=== PATIENT | male | born 1980 | race Caucasian/White ===

== ENCOUNTER 2016-11-22 15:16 | Emergency (ER) | payer OTHER ==
[2016-11-22 15:35] VITALS: BP 130/83; PULSE 76; RESP 16; TEMP 98.2
--- NOTE | 2016-11-22 15:57 | XR ---
EXAMINATION TYPE: XR wrist complete LT DATE OF EXAM: 11/22/2016 CLINICAL HISTORY: Left wrist pain for 3 weeks. TECHNIQUE: Frontal, lateral, scaphoid, and oblique images of the left wrist are obtained. COMPARISON: None FINDINGS: There is no acute fracture/dislocation evident in the left wrist. The joint spaces in the left wrist appear within normal limits. The overlying soft tissue appears unremarkable. IMPRESSION: There is no acute fracture or dislocation in the left wrist. Unremarkable study.
--- NOTE | 2016-11-22 16:12 | ED ---
Upper Extremity HPI - General Chief Complaint: Extremity Injury, Upper Stated Complaint: wrist pain Time Seen by Provider: 11/22/16 15:40 Source: patient Mode of arrival: ambulatory Limitations: no limitations - Related Data Previous Rx's Medication Instructions Recorded Acetaminophen-Codeine 300-30mg 1 tab PO Q6H PRN #15 tablet 11/22/16 [Tylenol #3] Dexamethasone 0.75 mg PO DAILY #12 tab 11/22/16 Allergies Allergy/AdvReac Type Severity Reaction Status Date / Time No Known Allergies Allergy Verified 08/26/14 12:40 Review of Systems ROS Statement: Those systems with pertinent positive or pertinent negative responses have been documented in the HPI. ROS Other: All systems not noted in ROS Statement are negative. Past Medical History Past Medical History: No Reported History History of Any Multi-Drug Resistant Organisms: None Reported Past Surgical History: No Surgical Hx Reported Past Psychological History: No Psychological Hx Reported Smoking Status: Current every day smoker Past Alcohol Use History: Occasional Past Drug Use History: Marijuana General Exam Limitations: no limitations Course Vital Signs 11/22/16 15:32 Temperature 98.2 F Pulse Rate 76 Respiratory 16 Rate Blood Pressure 130/83 O2 Sat by Pulse 100 Oximetry Disposition Clinical Impression: Carpal tunnel syndrome of left wrist Disposition: HOME SELF-CARE Condition: Good Instructions: Wrist Injury (ED), Paresthesia (ED) Additional Instructions: and advised to follow-up with orthopedic physician. Take prescriptions as directed. Patient advised to also use the wrist splint as directed. Return to the emergency department if any alarming signs or symptoms occur. Prescriptions: Acetaminophen-Codeine 300-30mg [Tylenol #3] 1 tab PO Q6H PRN #15 tablet PRN Reason: Pain Dexamethasone 0.75 mg PO DAILY #12 tab Referrals: Jeremy Escamilla MD [Primary Care Provider] - 1-2 days Leo Holder MD [STAFF PHYSICIAN] - 1-2 days Time of Disposition: 16:11
== END 2016-11-22 16:22 | disposition home or self-care (01) ==
LOC: EC 15:16
DX: G56.02 Carpal tunnel syndrome, left upper limb (principal); F17.200 Nicotine dependence, unspecified, uncomplicated
CPT/HCPCS: 99283

== ENCOUNTER → 2017-03-14 | Outpatient (CLI) | payer OTHER ==
[2017-03-14 10:33] LABS: EKG EKG PERFORMED
[2017-03-14 11:13] LABS: Basophils % (A) 0 %; CH 32.2; CHCM 34.1; Eosinophils # (A) 0.2 k/uL (0-0.7); Eosinophils % (A) 3 %; HCT 46.1 % (39.0-53.0); Luc # (Auto) 0.07; Luc % (Auto) 1; Lymphocytes # (A) 1.7 k/uL (1.0-4.8); Lymphocytes % (A) 21 %; MCH 30.8 pg (25.0-35.0); MCHC 32.5 g/dL (31.0-37.0); Mean Platelet Volume 8.1; Monocytes # (A) 0.4 k/uL (0-1.0); Monocytes % (A) 5 %; Neutrophils # (A) 5.6 k/uL (1.3-7.7); Neutrophils % (A) 70 %; RBC 4.85 m/uL (4.30-5.90); WBC (Perox) 7.66
[2017-03-14 11:25] LABS: Anion Gap 9 mmol/L; Blood Urea Nitrogen 15 mg/dL (9-20); Calcium 9.8 mg/dL (8.4-10.2); Carbon Dioxide 27 mmol/L (22-30); Chloride 108 mmol/L (98-107); Glucose 120 mg/dL (74-99); Non-African American GFR(MDRD) >60 (>60 ml/min/1.73 sqM); Potassium 4.5 mmol/L (3.5-5.1); Sodium 144 mmol/L (137-145)
== END | disposition home or self-care (01) ==
LOC: LABWHC1 10:07
PROVIDERS: ATTEND Orthopaedic Surgery
DX: Z01.810 Encounter for preprocedural cardiovascular examination (principal)
CPT/HCPCS: 36415; 80048; 85025; 93005

== ENCOUNTER 2019-08-14 10:40 | Inpatient (IN) | payer OTHER ==
[2019-08-14] MEDS ORDERED: SODIUM CHLORIDE 0.9% 1,000 ML IV STA ×2 (11:10)
--- NOTE | 2019-08-14 11:25 | ED ---
General Adult HPI - General Chief complaint: Seizure Stated complaint: seizures Time Seen by Provider: 08/14/19 11:00 Source: patient, EMS, RN notes reviewed, old records reviewed Mode of arrival: EMS Limitations: no limitations - History of Present Illness Initial comments: This Patient is a 39-year-old male with one prior seizure approximately 4-5 yea rs ago. He presents today for a seizure while he was laying in bed. This was witnessed by his girlfriend. Patient's girlfriend reports that he had a seizure in his sleep and it lasted approximately 3-4 minutes. He then woke up somewhat postictal. He rolled onto the side of the bed and had a minor head injury by hitting his head on the cabinet. His girlfriend denies any significant loss of consciousness after the head injury. Patient did not follow with a neurologist after his first seizure. He reports occasional drinker. Denies any other symptoms including fever chest or abdominal pain. - Related Data Previous Rx's Medication Instructions Recorded Acetaminophen-Codeine 300-30mg 1 tab PO Q6H PRN #15 tablet 11/22/16 [Tylenol #3] Dexamethasone 0.75 mg PO DAILY #12 tab 11/22/16 Allergies Allergy/AdvReac Type Severity Reaction Status Date / Time No Known Allergies Allergy Verified 08/26/14 12:40 Review of Systems ROS Statement: Those systems with pertinent positive or pertinent negative responses have been documented in the HPI. ROS Other: All systems not noted in ROS Statement are negative. Past Medical History Past Medical History: Seizure Disorder History of Any Multi-Drug Resistant Organisms: None Reported Past Surgical History: No Surgical Hx Reported Additional Past Surgical History / Comment(s): left thumb surgery Past Psychological History: No Psychological Hx Reported Smoking Status: Current every day smoker Past Alcohol Use History: Occasional Past Drug Use History: Marijuana General Exam Limitations: no limitations General appearance: alert, in no apparent distress Head exam: Present: atraumatic, normocephalic, normal inspection Eye exam: Present: normal appearance, PERRL, EOMI. Absent: scleral icterus, conjunctival injection, periorbital swelling ENT exam: Present: normal exam, mucous membranes moist Neck exam: Present: normal inspection. Absent: tenderness, meningismus, lymphadenopathy Respiratory exam: Present: normal lung sounds bilaterally. Absent: respiratory distress, wheezes, rales, rhonchi, stridor Cardiovascular Exam: Present: regular rate, normal rhythm, normal heart sounds. Absent: systolic murmur, diastolic murmur, rubs, gallop, clicks GI/Abdominal exam: Present: soft, normal bowel sounds. Absent: distended, tende rness, guarding, rebound, rigid Extremities exam: Present: normal inspection, full ROM, normal capillary refill. Absent: tenderness, pedal edema, joint swelling, calf tenderness Neurological exam: Present: alert, oriented X3, CN II-XII intact Expanded Patient oriented to: Present: person, place, time Speech: Present: fluid speech Cranial nerves: EOM's Intact: Normal Cerebellar function: Finger to Nose: Normal Upper motor neuron: Dale Neglect: Normal Sensory exam: Upper Extremity Light Touch: Normal, Lower Extremity Light Touch: Normal Motor strength exam: RUE: 5, LUE: 5, RLE: 5, LLE: 5 Eye Response: (4) open spontaneously Motor Response: (6) obeys commands Verbal Response: (5) oriented Katarzyna Total: 15 Psychiatric exam: Present: normal affect, normal mood Skin exam: Present: warm, dry, intact, normal color. Absent: rash Course Vital Signs 08/14/19 08/14/19 08/14/19 10:45 11:45 12:04 Temperature 97 F L Pulse Rate 56 L 66 74 Respiratory 18 24 18 Rate Blood Pressure 133/103 205/92 150/87 O2 Sat by Pulse 95 96 96 Oximetry 08/14/19 12:15 Temperature Pulse Rate 61 Respiratory 18 Rate Blood Pressure 134/87 O2 Sat by Pulse 96 Oximetry - Reevaluation(s) Reevaluation #1: 08/14/19 12:02 Patient had a seizure while in computed tomography scan. Total tonic-clonic seizure lasting approximately 2 minutes. Patient had IV ripped out at that time was given 2 mg of IM Ativan. He was post ictal somewhat combative after the seizure. Medical Decision Making - Medical Decision Making 39-year-old male presents emergency department today with onset of seizure. He had 3-4 minute tonic-clonic seizure according to girlfriend on bed. He then sat off the bed and hit his head. Patient arrived to the emergency department alert oriented and becoming more aware less postictal. Patient had no acute neurological deficits. He has had one previous seizure approximately 4-5 years ago. After Patient had some urgency department computed tomography scan is completed. Patient completed the CT of the brain he subsequently went into a 2- 3 minute tonic-clonic seizure on the CAT scan table. Patient was then given IM Ativan, and and patient was combative and post ictal. Patient started on keppra bolus. Ct brain without had some abnromal density and CT COW was completed and normal without aneurysm. PAtient reevaluated after second seizure and is resting in bed. Informed patient girlfriend that plan to admit and consul t neurology. - Lab Data Result diagrams: 08/14/19 11:23 08/14/19 11:23 Lab Results 08/14/19 08/14/19 08/14/19 Range/Units 11:23 11:23 11:23 WBC 13.2 H (3.8-10.6) k/uL RBC 5.26 (4.30-5.90) m/uL Hgb 16.5 (13.0-17.5) gm/dL Hct 47.5 (39.0-53.0) % MCV 90.3 (80.0-100.0) fL MCH 31.4 (25.0-35.0) pg MCHC 34.8 (31.0-37.0) g/dL RDW 13.0 (11.5-15.5) % Plt Count 223 (150-450) k/uL Neutrophils % 86 % Lymphocytes % 8 % Monocytes % 4 % Eosinophils % 2 % Basophils % 0 % Neutrophils # 11.3 H (1.3-7.7) k/uL Lymphocytes # 1.1 (1.0-4.8) k/uL Monocytes # 0.5 (0-1.0) k/uL Eosinophils # 0.3 (0-0.7) k/uL Basophils # 0.0 (0-0.2) k/uL Sodium 139 (137-145) mmol/L Potassium 5.0 (3.5-5.1) mmol/L Chloride 109 H (98-107) mmol/L Carbon Dioxide 18 L (22-30) mmol/L Anion Gap 12 mmol/L BUN 15 (9-20) mg/dL Creatinine 0.88 (0.66-1.25) mg/dL Est GFR (CKD-EPI)AfAm >90 (>60 ml/min/1.73 sqM) Est GFR (CKD-EPI)NonAf >90 (>60 ml/min/1.73 sqM) Glucose 112 H (74-99) mg/dL POC Glucose (mg/dL) (75-99) mg/dL POC Glu Derrick Helper ID Calcium 9.5 (8.4-10.2) mg/dL Total Bilirubin 0.3 (0.2-1.3) mg/dL AST 23 (17-59) U/L ALT 15 (4-49) U/L Alkaline Phosphatase 94 (38-126) U/L Total Protein 7.4 (6.3-8.2) g/dL Albumin 4.4 (3.5-5.0) g/dL Urine Color Light Yellow Urine Appearance Clear (Clear) Urine pH 6.0 (5.0-8.0) Ur Specific Hollis 1.014 (1.001-1.035) Urine Protein 1+ H (Negative) Urine Glucose (UA) Negative (Negative) Urine Ketones Trace H (Negative) Urine Blood Trace H (Negative) Urine Nitrite Negative (Negative) Urine Bilirubin Negative (Negative) Urine Urobilinogen <2.0 (<2.0) mg/dL Ur Leukocyte Esterase Negative (Negative) Urine RBC <1 (0-5) /hpf Urine WBC <1 (0-5) /hpf Ur Squamous Epith Cells <1 (0-4) /hpf Urine Opiates Screen Not Detected (NotDetected) Ur Oxycodone Screen Not Detected (NotDetected) Urine Methadone Screen Not Detected (NotDetected) Ur Propoxyphene Screen Not Detected (NotDetected) Ur Barbiturates Screen Not Detected (NotDetected) U Tricyclic Antidepress Not Detected (NotDetected) Ur Phencyclidine Scrn Not Detected (NotDetected) Ur Amphetamines Screen Not Detected (NotDetected) U Methamphetamines Scrn Not Detected (NotDetected) U Benzodiazepines Scrn Not Detected (NotDetected) Urine Cocaine Screen Not Detected (NotDetected) U Marijuana (THC) Screen Detected H (NotDetected) 08/14/19 Range/Units 11:47 WBC (3.8-10.6) k/uL RBC (4.30-5.90) m/uL Hgb (13.0-17.5) gm/dL Hct (39.0-53.0) % MCV (80.0-100.0) fL MCH (25.0-35.0) pg MCHC (31.0-37.0) g/dL RDW (11.5-15.5) % Plt Count (150-450) k/uL Neutrophils % % Lymphocytes % % Monocytes % % Eosinophils % % Basophils % % Neutrophils # (1.3-7.7) k/uL Lymphocytes # (1.0-4.8) k/uL Monocytes # (0-1.0) k/uL Eosinophils # (0-0.7) k/uL Basophils # (0-0.2) k/uL Sodium (137-145) mmol/L Potassium (3.5-5.1) mmol/L Chloride (98-107) mmol/L Carbon Dioxide (22-30) mmol/L Anion Gap mmol/L BUN (9-20) mg/dL Creatinine (0.66-1.25) mg/dL Est GFR (CKD-EPI)AfAm (>60 ml/min/1.73 sqM) Est GFR (CKD-EPI)NonAf (>60 ml/min/1.73 sqM) Glucose (74-99) mg/dL POC Glucose (mg/dL) 134 H (75-99) mg/dL POC Glu Derrick Helper ID Daksha Bryant Calcium (8.4-10.2) mg/dL Total Bilirubin (0.2-1.3) mg/dL AST (17-59) U/L ALT (4-49) U/L Alkaline Phosphatase (38-126) U/L Total Protein (6.3-8.2) g/dL Albumin (3.5-5.0) g/dL Urine Color Urine Appearance (Clear) Urine pH (5.0-8.0) Ur Specific Hollis (1.001-1.035) Urine Protein (Negative) Urine Glucose (UA) (Negative) Urine Ketones (Negative) Urine Blood (Negative) Urine Nitrite (Negative) Urine Bilirubin (Negative) Urine Urobilinogen (<2.0) mg/dL Ur Leukocyte Esterase (Negative) Urine RBC (0-5) /hpf Urine WBC (0-5) /hpf Ur Squamous Epith Cells (0-4) /hpf Urine Opiates Screen (NotDetected) Ur Oxycodone Screen (NotDetected) Urine Methadone Screen (NotDetected) Ur Propoxyphene Screen (NotDetected) Ur Barbiturates Screen (NotDetected) U Tricyclic Antidepress (NotDetected) Ur Phencyclidine Scrn (NotDetected) Ur Amphetamines Screen (NotDetected) U Methamphetamines Scrn (NotDetected) U Benzodiazepines Scrn (NotDetected) Urine Cocaine Screen (NotDetected) U Marijuana (THC) Screen (NotDetected) 08/14/19 12:02 EKG performed at 1122 shows sinus bradycardia with sinus arrhythmia, septal infarct age uncertain. Ventricular rate 52 bpm. AK interval is 148 ms. QS duration is 80 ms. QT QTc is 414/85 ms. - Radiology Data Radiology results: report reviewed DT of the brain shows no acute intracranial hemorrhage mass effect or midline shift is seen. However the blood vessels of the middle cerebral arteries is somewhat hyperdense. This could be technical related to dehydration. Recommended CTA [place] of [place] to exclude vascular abnormality. CT angio COW- No large vessel intercranial arterial occlusion or aneurysmal change is seen. Slightly hyperdense appearance in the middle cerebral arteries seen on CT of the same day does not correspond to any thrombosis. Disposition Clinical Impression: New onset seizure Disposition: ADMITTED IP TO THIS HOSP Condition: Stable Is patient prescribed a controlled substance at d/c from ED?: No Referrals: None,Stated [Primary Care Provider] - 1-2 days Time of Disposition: 13:28
[2019-08-14 11:45] LABS: Basophils % (A) 0 %; Eosinophils # (A) 0.3 k/uL (0-0.7); Eosinophils % (A) 2 %; HCT 47.5 % (39.0-53.0); HGB 16.5 gm/dL (13.0-17.5); Lymphocytes # (A) 1.1 k/uL (1.0-4.8); Lymphocytes % (A) 8 %; MCH 31.4 pg (25.0-35.0); MCHC 34.8 g/dL (31.0-37.0); MCV 90.3 fL (80.0-100.0); Mean Platelet Volume 8.5; Monocytes # (A) 0.5 k/uL (0-1.0); Monocytes % (A) 4 %; Neutrophils # (A) 11.3 k/uL (1.3-7.7); Neutrophils % (A) 86 %; Platelet Count 223 k/uL (150-450); RBC 5.26 m/uL (4.30-5.90); WBC 13.2 k/uL (3.8-10.6)
[2019-08-14] MEDS ORDERED: LORazepam 2 MG/ML INJ IM STA (11:45)
[2019-08-14 11:47] LABS: Appearance,Urine Clear (Clear); Bilirubin,Urine Negative (Negative); Blood,Urine Trace (Negative); Color,Urine Light Yellow; Glucose,Urine (UA) Negative (Negative); Ketones,Urine Trace (Negative); Leukocyte Esterase,Urine Negative (Negative); Nitrite,Urine Negative (Negative); Protein,Urine 1+ (Negative); RBC,Urine <1 /hpf (0-5); Specific Gravity,Urine 1.014 (1.001-1.035); Squamous Epithelial Cell,Urine <1 /hpf (0-4); Urobilinogen,Urine <2.0 mg/dL (<2.0); WBC,Urine <1 /hpf (0-5)
[2019-08-14 11:49] LABS: Glucose,Whole Blood 134 mg/dL (75-99)
[2019-08-14 11:54] LABS: ALT 15 U/L (4-49); AST 23 U/L (17-59); African American GFR (CKD) >90 (>60 ml/min/1.73 sqM); Albumin 4.4 g/dL (3.5-5.0); Alkaline Phosphatase 94 U/L (38-126); Anion Gap 12 mmol/L; Blood Urea Nitrogen 15 mg/dL (9-20); Calcium 9.5 mg/dL (8.4-10.2); Carbon Dioxide 18 mmol/L (22-30); Chloride 109 mmol/L (98-107); Glucose 112 mg/dL (74-99); Non-African American GFR(CKD) >90 (>60 ml/min/1.73 sqM); Sodium 139 mmol/L (137-145); Total Bilirubin 0.3 mg/dL (0.2-1.3); Total Protein 7.4 g/dL (6.3-8.2)
[2019-08-14 11:56] LABS: Amphetamine Screen,Urine Not Detected (NotDetected); Barbiturate Screen,Urine Not Detected (NotDetected); Benzodiazepines Screen,Urine Not Detected (NotDetected); Cocaine Screen,Urine Not Detected (NotDetected); Methadone Screen, Urine Not Detected (NotDetected); Opiate Screen,Urine Not Detected (NotDetected); Oxycodone Screen, Urine Not Detected (NotDetected); Phencyclidine Screen,Urine Not Detected (NotDetected); Tricyclic Antidepressant,Urine Not Detected (NotDetected); Urn Cannabinoid Scrn Detected (NotDetected)
[2019-08-14] MEDS ORDERED: levETIRAcetam IV 1,000 MG in SALINE 1 100ML.BAG IVPB STA (11:57)
--- NOTE | 2019-08-14 12:06 | CT ---
EXAMINATION TYPE: CT brain wo con DATE OF EXAM: 08/14/2019 COMPARISON: 08/26/2014 HISTORY: seizure today with history of prior seizures CT DLP: 1099.4 mGycm. Automated Exposure Control for Dose Reduction was Utilized. TECHNIQUE: CT scan of the head is performed without contrast. FINDINGS: There is no acute intracranial hemorrhage, mass effect, or midline shift identified. The ventricles and sulci are within normal limits in size. The globes are intact and there are changes of chronic sinusitis. Blood vessels are somewhat hyperdense. Recommend CTA [place] of [place]. Cerebell ar tonsils low-lying in position. IMPRESSION: 1. No acute intracranial hemorrhage, mass effect, or midline shift is seen. However, the blood vessel s of the middle cerebral arteries is somewhat hyperdense. This could be technical or related to dehyd ration. Recommend CTA [place] to exclude vascular abnormality.
--- NOTE | 2019-08-14 13:11 | CT ---
EXAMINATION TYPE: CT angio COW [place] DATE OF EXAM: 08/14/2019 COMPARISON: CT brain same day HISTORY: 39-year-old male seizure, abnormal ct brain TECHNIQUE: Contiguous axial scanning of the brain performed with IV Contrast, patient injected with 1 00 mL of Isovue 370. Coronal/sagittal MIP reconstructions performed. 3-D reconstructions generated on a dedicated independent workstation. CT DLP: 224 mGycm Automated exposure control for dose reduction was used. FINDINGS: The vertebral arteries are codominant. Vertebral and basilar arteries are patent. The common carotid arteries are patent. The remainder of the anterior circulation also appears No aneurysmal changes seen. IMPRESSION: NO LARGE VESSEL INTRACRANIAL ARTERIAL OCCLUSION OR ANEURYSMAL CHANGE IS SEEN. SLIGHTLY HYPERDENSE SANDRA EARANCE TO THE MIDDLE CEREBRAL ARTERIES SEEN ON CT OF THE SAME DAY DOES NOT CORRESPOND TO ANY THROMBO SIS.
[2019-08-14] MEDS ORDERED: IBUPROFEN 400 MG TAB PO PRN (13:30)
[2019-08-14] MEDS ORDERED: MORPHINE SULFATE 4 MG/ML SYRINGE IV PRN (13:30)
[2019-08-14] MEDS ORDERED: ONDANSETRON 4 MG/2 ML VIAL IVP PRN (13:30)
[2019-08-14] MEDS ORDERED: ACETAMINOPHEN TAB 325 MG TAB PO PRN (13:30)
[2019-08-14] MEDS ORDERED: KETOROLAC 30 MG/ML 1 ML VIAL IVP PRN (13:30)
[2019-08-14] MEDS ORDERED: NALOXONE 0.4 MG/ML 1 ML VIAL IV PRN (13:30)
[2019-08-14] MEDS: SODIUM CHLORIDE 0.9% 1,000 ML IV SCH (16:04)
--- NOTE | 2019-08-14 17:51 | P.CNNES ---
History of Present Illness Consult date: 08/14/19 Requesting physician: Mina Angela Reason for Consult: New onset seizure History of Present Illness: Patient is a 39-year-old male, who came to the hospital because of a seizure while he was sleeping at night. According to EMS flow sheet, patient had a seizure while he was laying in bed sleeping. When the EMS arrived, he was alert and oriented 3 with confusion to time. Patient's mentioned that he became confused and attempted to get out of bed. Patient rolled out of bed and hit his head onto the dresser, but no visible injuries to his head or neck. Patient's pupils were round and reacting. His blood pressure at the scene was 158/104, pulse rate 92, respiration 18. Patient had a seizure while in the computed tomography scan area. It was a tonic-clonic seizure lasting about 2 minutes. Patient was postictal, somewhat combative after the seizure. There was no tongue bite or loss of control of urine. Patient's CT head showed no acute intracranial hemorrhage, mass effect or midline shift. CTA of head showed no large vessel intracranial arterial occlusion or aneurysm or thrombosis. EKG shows sinus bradycardia with sinus arrhythmia. Patient's CBC with WBC 13.2 hemoglobin 16.5 and platelets 223. Chem-20 normal. Urine drug screen positive for marijuana, blood alcohol level not checked. Patient smokes marijuana every day. Does not do any other drugs or Xanax. He states he drinks a few on the weekend. He has not drank last weekend. Patient also mentions that he had a seizure 4-5 years ago when he was at work. He came to this hospital, and they ran some tests, never saw a neurologist. He was not put on any seizure medication. Review of Systems Completely unremarkable at this time. Past Medical History Past Medical History: Seizure Disorder History of Any Multi-Drug Resistant Organisms: None Reported Past Surgical History: No Surgical Hx Reported Additional Past Surgical History / Comment(s): left thumb surgery Past Psychological History: No Psychological Hx Reported Smoking Status: Current every day smoker Past Alcohol Use History: Occasional Past Drug Use History: Marijuana Medications and Allergies Home Medications Medication Instructions Recorded Confirmed Type No Known Home Medications 08/14/19 08/14/19 History Allergies Allergy/AdvReac Type Severity Reaction Status Date / Time No Known Allergies Allergy Verified 08/14/19 13:47 Physical Examination - Vital Signs Vital Signs: Vital Signs Temp Pulse Pulse Resp BP BP Pulse Ox 08/14/19 14:18 67 16 157/75 99 08/14/19 14:14 97.7 F 68 18 108/90 98 08/14/19 13:30 73 18 117/89 98 08/14/19 12:15 61 18 134/87 96 08/14/19 12:04 74 18 150/87 96 08/14/19 11:45 66 24 205/92 96 08/14/19 10:45 97 F L 56 L 18 133/103 95 Intake and Output 08/14/19 08/14/19 08/14/19 06:59 14:59 22:59 Intake Total 100 Output Total 350 Balance -250 Intake: Intake, IV Titration 100 Amount Sodium Chloride 0.9% 1, 100 000 ml @ 100 mls/hr IV . Q10H STA Rx#:[id number] Output: Urine 350 Other: Weight 83.915 kg On examination patient is a young male, in no distress. Patient is alert and awake, oriented to time place and person. Speech and language functions are normal. Attention and concentration fund of knowledge is adequate. On cranial examination pupils are round and reactive to light, visual ambrosio are full on confrontation, extraocular muscles intact with no nystagmus. Face is symmetric, tongue protrudes the midline. Palatal elevation and sensation normal. On muscle strength testing there is no pronator drift and the strength is normal in arms and legs distally and proximally. Reflexes are 1+ and plantars downgoing. Sensory touch is equal. No ataxia for [id number] testing. Tone and bulk of muscles normal. No carotid bruit or murmur, peripheral pulses present. Results - Laboratory Findings CBC and BMP: 08/14/19 11:23 08/14/19 11:23 Abnormal Lab Findings: Abnormal Labs 08/14/19 08/14/19 08/14/19 11:23 11:23 11:23 WBC 13.2 H Neutrophils # 11.3 H Chloride 109 H Carbon Dioxide 18 L Glucose 112 H POC Glucose (mg/dL) Urine Protein 1+ H Urine Ketones Trace H Urine Blood Trace H U Marijuana (THC) Screen Detected H 08/14/19 11:47 WBC Neutrophils # Chloride Carbon Dioxide Glucose POC Glucose (mg/dL) 134 H Urine Protein Urine Ketones Urine Blood U Marijuana (THC) Screen Assessment and Plan Assessment: * 39-year-old male came with grand mal seizure while sleeping at night. He had a second seizure today while having computed tomography scan done. Patient also had history of a solitary seizure 4-5 years ago. Exact cause uncertain. Patient denies any significant alcoholism or any substance abuse besides use of marijuana. Rule out seizure disorder. Plan: * We will check an EEG, and MRI of the brain. * Patient has been started on Keppra. * Patient was informed of [place] state law of no driving, unless seizure free for 6 months, operating dangerous machinery, climbing ladders or unsupervised swimming.
--- NOTE | 2019-08-14 22:44 | HP ---
HISTORY AND PHYSICAL This patient is a 39-year-old white male who came in with a seizure, sleeping at night. He was lying in bed sleeping. He apparently became attempted to get out of bed and he hit his head under a dresser. No visible injuries to his head or his neck. Apparently he was seizing in his asleep; unsure how long he has had it. He had a CT also in the CT scan area. Tonic-clonic seizure lasting 2 minutes. Postictal somewhat combative. No tongue-biting or loss of urine. CTA shows no intracranial hemorrhage, midline shift. CTA of the head showed no large vessel intracranial arterial occlusion or aneurysm or thrombosis. EKG shows sinus bradycardia. Labs essentially were normal. Positive for marijuana. He smokes marijuana every day. He does not do any other drugs. No Xanax. Some social drinking on the weekend. He works as a livestock farmers. He had a seizure 4 to 5 years ago; never saw a neurologist, was never placed on any seizure medicines. REVIEW OF SYSTEMS: Fourteen-point review of systems negative except for those mentioned in HPI. PAST MEDICAL HISTORY: Possible seizure disorder. Current everyday smoker. Occasional marijuana. No home medicines. PHYSICAL EXAMINATION: Vital signs reviewed. CARDIOVASCULAR: S1, S2. LUNGS: Transmitted upper airway sounds. HEMATOLOGY: Negative Homans. PSYCH: Fair mood and affect. NEUROLOGIC: Alert and oriented x3. OPHTHALMOLOGIC: Pupils equal, round, reactive to light and accommodation. Muscle strength is equal x4. VASCULAR: Normal dorsalis pedis, posterior tibial, radial pulse. LABS: White count 13.2, hemoglobin 16.5, hematocrit 47.5, BUN 15, creatinine 0.88. ASSESSMENT: 1. Acute seizure disorder, possibly recurrence. 2. Marijuana use. EEG, MRI of the brain. Started on Keppra. No driving for 6 months. Continue with Keppra. Possible discharge home after MRI and EEG. MMODL / IJN: [id number] /
[2019-08-15 07:20] LABS: African American GFR (CKD) >90 (>60 ml/min/1.73 sqM); Anion Gap 7 mmol/L; Blood Urea Nitrogen 11 mg/dL (9-20); Calcium 9.2 mg/dL (8.4-10.2); Carbon Dioxide 18 mmol/L (22-30); Chloride 112 mmol/L (98-107); Glucose 93 mg/dL (74-99); Non-African American GFR(CKD) >90 (>60 ml/min/1.73 sqM); Potassium 4.1 mmol/L (3.5-5.1); Sodium 137 mmol/L (137-145)
[2019-08-15 07:53] LABS: Basophils % (A) 0 %; Eosinophils # (A) 0.2 k/uL (0-0.7); Eosinophils % (A) 3 %; HCT 44.6 % (39.0-53.0); HGB 15.3 gm/dL (13.0-17.5); Lymphocytes # (A) 1.5 k/uL (1.0-4.8); Lymphocytes % (A) 17 %; MCH 31.3 pg (25.0-35.0); MCHC 34.4 g/dL (31.0-37.0); MCV 90.9 fL (80.0-100.0); Mean Platelet Volume 8.4; Monocytes # (A) 0.5 k/uL (0-1.0); Monocytes % (A) 6 %; Neutrophils # (A) 6.6 k/uL (1.3-7.7); Neutrophils % (A) 74 %; Platelet Count 222 k/uL (150-450); RBC 4.91 m/uL (4.30-5.90); RDW 13.1 % (11.5-15.5); WBC 8.8 k/uL (3.8-10.6)
[2019-08-15] MEDS: PANTOPRAZOLE 40 MG/10 ML VIAL IV SCH (08:24)
[2019-08-15 11:33] VITALS: RESP 18
--- NOTE | 2019-08-15 12:44 | P.CRDCN ---
History of Present Illness Consult date: 08/15/19 Reason for Consult (text): pauses Chief complaint: Seizure activity History of present illness: This is a 39-year-old gentleman who works in the [employer] business, [employer]. He has a past medical history significant for seizures a few years ago, one episode, was never initiated on medication and never followed up with a neurologist. He denies any history of hypertension, no diabetes, no hyperlipidemia, although he does not follow with a primary care doctor. He does smoke up to a pack of cigarettes per day, he does also state that he drinks alcohol every weekend but does not drink through the week at all. He uses marijuana on a daily basis. The patient was brought to the hospital after experiencing what was felt to be a seizure. Apparently the girlfriend stated that it looked like he was having a seizure while laying in bed sleeping, he apparently tried to get up and fell onto the ground hitting his head on the dresser. When I asked the patient about this episode he does not recall any of these symptoms or events. He does state that he's had a seizure in the past but never followed up. Laboratory data on arrival here, white blood cell count 13.2, hemoglobin 16.5, platelet count 223, sodium 139, potassium 5.0, BUN 15, creatinine 0.8 and was negative. Drug screen showed evidence of marijuana. Blood pressure 130/70 with a heart rate in the 70s, patient was having high blood pressures on admission here, but he states he was a quite anxious during those times as well. EKG on presentation here showed a sinus bradycardia. Cardiology consultation was requested because the patient was noted on the monitor on 2 separate occasions to have pauses. Both of these were documented while the patient was sleeping. First positive was approximately 3-1/2 seconds, second pause 2-1/2 seconds. I did ask the patient if he snores a lot or is ever been told to have sleep apnea in the past, he denied this. CAT scan of the brain was performed which did not reveal any evidence of acute intracranial hemorrhage, mass effect, or midline shift. However the blood vessels of the middle cerebral arteries were somewhat hypodense. A CT angiogram of the [place] was performed which did not reveal any large vessel intracranial arterial occlusion or aneurysmal change. At the time of my examination, patient is a lying down in bed, he is quite sleepy and tired. He denies any symptoms at present. He denies any syncopal episodes in the past, no dizziness or lightheadedness. Other than his 1 episode of seizure a few years ago patient states he has no medical history of any significance. Past Medical History Past Medical History: Seizure Disorder History of Any Multi-Drug Resistant Organisms: None Reported Past Surgical History: No Surgical Hx Reported Additional Past Surgical History / Comment(s): left thumb surgery Past Psychological History: No Psychological Hx Reported Smoking Status: Current every day smoker Past Alcohol Use History: Occasional Past Drug Use History: Marijuana Medications and Allergies Home Medications Medication Instructions Recorded Confirmed Type No Known Home Medications 08/14/19 08/14/19 History Allergies Allergy/AdvReac Type Severity Reaction Status Date / Time No Known Allergies Allergy Verified 08/14/19 13:47 Physical Exam Vitals: Vital Signs Temp Pulse Pulse Resp BP BP Pulse Ox 08/15/19 08:15 98.7 F 70 18 130/71 98 08/15/19 04:00 99.2 F 69 14 121/66 97 08/15/19 00:00 99.2 F 76 12 108/85 95 08/14/19 20:00 61 14 118/55 98 08/14/19 16:00 50 L 16 113/89 08/14/19 14:18 67 16 157/75 99 08/14/19 14:14 97.7 F 68 18 108/90 98 08/14/19 13:30 73 18 117/89 98 Intake and Output 08/14/19 08/15/19 08/15/19 22:59 06:59 14:59 Output Total 1 Balance -1 Output: Urine 1 Other: # Voids 1 1 Weight 80.4 kg PHYSICAL EXAMINATION: GENERAL: 39-year-old gentleman in no acute distress at the time of my examination HEENT: Head is atraumatic, normocephalic. Pupils equal, round. Sclera anicteric. Conjunctiva are clear. Mucous membranes of the mouth are moist. Neck is supple. There is no elevated jugular venous pressure. No carotid bruit is heard. HEART EXAMINATION: Heart S1, S2 normal. No murmur or gallop heard. CHEST EXAMINATION: Lungs are clear to auscultation and precussion. No chest wall tenderness is noted on palpation or with deep breathing. ABDOMEN: Soft, nontender. Bowel sounds are heard. No organomegaly noted. EXTREMITIES: 2+ peripheral pulses with no evidence of peripheral edema and no calf tenderness noted. NEUROLOGIC patient is awake, alert and oriented 3. . Results 08/15/19 06:33 08/15/19 06:33 CBC 08/15/19 Range/Units 06:33 WBC 8.8 (3.8-10.6) k/uL RBC 4.91 (4.30-5.90) m/uL Hgb 15.3 (13.0-17.5) gm/dL Hct 44.6 (39.0-53.0) % Plt Count 222 (150-450) k/uL Comprehensive Metabolic Panel 08/15/19 Range/Units 06:33 Sodium 137 (137-145) mmol/L Potassium 4.1 (3.5-5.1) mmol/L Chloride 112 H (98-107) mmol/L Carbon Dioxide 18 L (22-30) mmol/L BUN 11 (9-20) mg/dL Creatinine 0.91 (0.66-1.25) mg/dL Glucose 93 (74-99) mg/dL Calcium 9.2 (8.4-10.2) mg/dL Current Medications Generic Name Dose Route Start Last Admin Trade Name Freq PRN Reason Stop Dose Admin Acetaminophen 650 mg 08/14/19 13:30 Tylenol Tab PO Q6HR PRN Mild Pain or Fever > 100.5 Sodium Chloride 1,000 mls @ 20 mls/hr 08/14/19 13:30 08/14/19 16:04 Saline 0.9% IV 20 mls/hr .Q24H ELMER Administration Ibuprofen 400 mg 08/14/19 13:30 Motrin PO Q6HR PRN Mild Pain or Fever > 100.5 Ketorolac Tromethamine 30 mg 08/14/19 13:30 Toradol IVP 08/19/19 13:31 Q6HR PRN Moderate Pain Morphine Sulfate 4 mg 08/14/19 13:30 Morphine Sulfate (Inj) IV Q4HR PRN Severe Pain Naloxone HCl 0.2 mg 08/14/19 13:30 Narcan IV Q2M PRN Opioid Reversal Ondansetron HCl 4 mg 08/14/19 13:30 Zofran IVP Q8HR PRN Nausea And Vomiting Pantoprazole Sodium 40 mg 08/15/19 09:00 08/15/19 08:24 Protonix IV 40 mg DAILY ELMER Administration Intake and Output 08/14/19 08/15/19 08/15/19 22:59 06:59 14:59 Output Total 1 Balance -1 Output: Urine 1 Other: # Voids 1 1 Weight 80.4 kg 08/15/19 06:33 08/15/19 06:33 EKG Interpretations (text) EKG shows a sinus bradycardia with no significant changes. Assessment and Plan Plan: Assessment and plan #1 questionable seizures #2 episodes of pauses, could be secondary to sleep apnea #3 nicotine dependence #4 weekend alcohol use #5 marijuana use daily Plan We will obtain an echocardiogram with Doppler study, continue to monitor the patient for any significant bradycardia arrhythmias. Check a TSH level. We also recommend that the patient had an event monitor on discharge. DNP note has been reviewed, I agree with a documented findings and plan of care. Patient was seen and examined.
--- NOTE | 2019-08-15 13:32 | EEG ---
ELECTROENCEPHALOGRAM REPORT DATE OF SERVICE: 08/15/2019 PREAMBLE: A 39-year-old male presenting with seizures. EEG FINDINGS: A routine 21 channel EEG was performed utilizing 10/20 international system review with bipolar and referential montages. The background consists of well developed, well regulated, moderate voltage activity in 8 to 9 Hz alpha. Background is posterior dominant and reactive to eye opening and closing. Photic driving response was seen at some flash frequencies. Hyperventilation did not reveal any obvious abnormalities. There is intermittent left temporal focal theta seen, and occasionally was sharply controlled. The EEG also revealed some sharp appearing waves over the right hemispheric region, which at times appears more artifactual. Mild drowsiness was seen but deeper stages of sleep were not seen. EKG rhythm lead revealed some arrhythmia. IMPRESSION: This is an abnormal EEG due to intermittent left temporal theta with occasional sharply contoured waves. This is suggestive of focal cortical neuronal dysfunction, which may have some features of cortical irritability and tendency for seizures. However, I would recommend prolonged, sleep-deprived EEG for better evaluation of underlying electrographic abnormalities, as this was somewhat technically limited study. MMODL / IJN: [id number] / GARCÍA
--- NOTE | 2019-08-15 15:40 | MR ---
EXAMINATION TYPE: MR brain wo con DATE OF EXAM: 08/15/2019 3:14 PM COMPARISON: NONE HISTORY: Patient had a seizure while sleeping. Hit his head on a dresser. Unsure of length of time se izure lasted. Multiplanar and multispin-echo imaging of the brain was performed . The ventricles, basal cisterns and sulci overlying the cerebral convexities are within normal limits. There is no evidence for midline shift or mass effect. Acute intracranial hemorrhage or extra-axial collection is not evident. There is focal increased signal noted to involve the left cerebellum posteriorly measuring 1 cm. Whil e this could reflect an area of demyelination cannot exclude an underlying lesion. Contrast-enhanced MRI is advised for further evaluation. Additional smaller foci of increased signal within the bilater al cerebral hemispheres totaling approximately 5-6 on the right and approximately 3-4 on the left [place] up to 4 mm. No acute edema is identified. Chronic paranasal sinusitis noted. IMPRESSION: 1.There is focal increased signal noted to involve the left cerebellum posteriorly measuring 1 cm. Wh ile this could reflect an area of demyelination cannot exclude an underlying lesion. Contrast-enhance d MRI is advised for further evaluation. 2. No acute edema is identified.
--- NOTE | 2019-08-15 15:59 | P.PN ---
Subjective Progress Note Date: 08/15/19 Patient feels fine. No further seizures. Objective - Vital Signs Vital signs: Vital Signs Temp 98.8 F 08/15/19 11:15 Pulse 77 08/15/19 11:15 Resp 18 08/15/19 11:15 BP 134/62 08/15/19 11:15 Pulse Ox 99 08/15/19 11:15 Intake & Output 08/14/19 08/15/19 08/15/19 18:59 06:59 18:59 Intake Total 100 Output Total 350 1 Balance -250 -1 Weight 83.915 kg 80.4 kg Intake: Intake, IV Titration 100 Amount Sodium Chloride 0.9% 1, 100 000 ml @ 100 mls/hr IV . Q10H STA Rx#:[id number] Output: Urine 350 1 Other: # Voids 1 - Exam Nonfocal - Labs CBC & Chem 7: 08/15/19 06:33 08/15/19 06:33 Labs: Abnormal Lab Results - Last 24 Hours (Table) 08/15/19 Range/Units 06:33 Chloride 112 H (98-107) mmol/L Carbon Dioxide 18 L (22-30) mmol/L Assessment and Plan Assessment: * 39-year-old male presented to the ER with grand mal seizure while sleeping at night. He had a second seizure today while having computed tomography scan done. Patient also had history of a solitary seizure 4-5 years ago. Exact cause uncertain. Patient denies any significant alcoholism or any substance abuse besides use of marijuana. Rule out seizure disorder. Plan: * EEG was performed today, which was abnormal due to intermittent left temporal theta with occasional sharply contoured waves, may suggest focal cortical neuronal dysfunction with some cortical irritability. Suggest prolonged, sleep deprived EEG for better evaluation of underlying electrographic abnormalities, if any. * MRI of the brain revealed focal increased signal noted to involve the left cerebellum posteriorly measuring 1 cm. While this could reflect an area of demyelination, cannot exclude an underlying lesion. Contrast enhanced MRI is advised for further evaluation. We will check contrast enhanced MRI of the brain. * Continue Keppra 500 mg twice a day. * Patient was informed of [place] state law of no driving, unless seizure free for 6 months, operating dangerous machinery, climbing ladders or unsupervised swimming. Addendum: MRI of the brain with contrast revealed a 1 cm round isointense and nonenhancing lesion of the posterior inferior left cerebellum, corresponding to the T2 hyperintense lesion on the noncontrast study performed earlier today. Some differential considerations include demyelinating disorder, intermediate grade glioma, a small dysplastic gangliocytoma, and cerebellar cortical dysphasia/heterotropia. Patient probably will need a repeat MRI of the brain with and without contrast in 6-12 months for a follow-up. Suggest patient to follow up with a neurologist as an outpatient. Neurologically clear for discharge on Keppra 500 mg twice a day.
--- NOTE | 2019-08-15 16:15 | ECHOF ---
Referral Reason:bradycardia MEASUREMENTS -------- HEIGHT: 165.1 cm WEIGHT: 80.3 kg BP: 130/71 RVIDd: 3.2 cm (< 3.3) IVSd: 1.2 cm (0.6 - 1.1) LVIDd: 4.1 cm (3.9 - 5.3) LVPWd: 1.1 cm (0.6 - 1.1) IVSs: 1.6 cm LVIDs: 2.7 cm LVPWs: 1.7 cm LA Diam: 3.2 cm (2.7 - 3.8) LAESV Index (A-L): 24.43 ml/m Ao Diam: 3.0 cm (2.0 - 3.7) AV Cusp: 2.4 cm (1.5 - 2.6) MV EXCURSION: 17.614 mm (> 18.000) MV EF SLOPE: 124 mm/s (70 - 150) MV E Jason: 0.75 m/s MV DecT: 323 ms MV A Jason: 0.60 m/s MV E/A Ratio: 1.24 FINDINGS -------- Sinus rhythm. This was a technically good study. The left ventricular size is normal. There is borderline concentric left ventricular hypertrophy. Overall left ventricular systolic function is normal with, an EF between 55 - 60 %. The right ventricle is normal in size. Normal LA size by volume 22+/-6 ml/m2. The right atrial size is normal. Interatrial and interventricular septum intact. The aortic valve is trileaflet, and appears structurally normal. No aortic stenosis or regurgitation. The mitral valve is normal. There is trace to mild mitral regurgitation. The tricuspid valve appears structurally normal. Trace tricuspid regurgitation present. Trace/mild (physiologic) pulmonic regurgitation. The aortic root size is normal. Normal inferior vena cava with normal inspiratory collapse consistent with estimated right atrial pre ssure of 5 mmHg. There is no pericardial effusion. CONCLUSIONS -------- 1. There is borderline concentric left ventricular hypertrophy. 2. Overall left ventricular systolic function is normal with, an EF between 55 - 60 %. 3. Normal LA size by volume 22+/-6 ml/m2. 4. The aortic valve is trileaflet, and appears structurally normal. No aortic stenosis or regurgitati on. 5. There is trace to mild mitral regurgitation. 6. Trace tricuspid regurgitation present. 7. Trace/mild (physiologic) pulmonic regurgitation. SEATING CAPTAIN: Kaycee Loo RDCS
--- NOTE | 2019-08-15 16:47 | P.PN ---
Subjective Progress Note Date: 08/15/19 This is a 39-year-old gentleman admitted with possibly acute recurrent seizure disorder, marijuana use and multiple other medical issues. Earlier this morning telemetry reported patient having pauses2 separate occasions, asymptomatic sleeping, of 3.6 seconds and 2.9 seconds. Seizure precautions, Keppra maintained with no further seizures reported. Evaluated by neurology with recommendations noted and appreciated. Cardiology consulted. Echo reported normal LV function, EF between 55 and 60%. Brain MRI reported focal increased signal noted to involve the left cerebellum posteriorly measuring 1 cm. While this could reflect an area of demyelination, cannot exclude an underlying lesion. Contrast enhanced MRI is advised for further evaluation. EEG reported abnormal due to intermittent left temporal theta with occasional sharply contoured waves,possible focal cortical neuronal dysfunction with some cortical irritability. Objective - Vital Signs Vital signs: Vital Signs Temp 98.8 F 08/15/19 11:15 Pulse 77 08/15/19 11:15 Resp 18 08/15/19 11:15 BP 134/62 08/15/19 11:15 Pulse Ox 99 08/15/19 11:15 Intake & Output 08/14/19 08/15/19 08/15/19 18:59 06:59 18:59 Intake Total 100 Output Total 350 1 Balance -250 -1 Weight 83.915 kg 80.4 kg Intake: Intake, IV Titration 100 Amount Sodium Chloride 0.9% 1, 100 000 ml @ 100 mls/hr IV . Q10H STA Rx#:[id number] Output: Urine 350 1 Other: # Voids 1 - Exam PHYSICAL EXAM: VITAL SIGNS: As above GENERAL: Sitting up in bed, no acute distress HEENT: Conjunctivae normal. eyes normal. Oral mucosa moist NECK: No JVD. No thyroid enlargement. No LNs CARDIOVASCULAR: S1, S2 regular. No murmur RESPIRATION: Breath sounds diminished in the bases. No rhonchi or crackles. No wheezing ABDOMEN: Soft, nontender . No guarding. no masses palpable. No ascites, No hepatosplenomegaly.Bowel sounds heard. LEGS: No edema. no swelling PSYCHIATRY: Alert and oriented X3, mood and affect normal. NERVOUS SYSTEM: Cranial N 2-12 grossly normal. Moves all 4 limbs. No focal deficits. Strength and sensation grossly intact.. Skin: no rash - Labs CBC & Chem 7: 08/15/19 06:33 08/15/19 06:33 Labs: Abnormal Lab Results - Last 24 Hours (Table) 08/15/19 Range/Units 06:33 Chloride 112 H (98-107) mmol/L Carbon Dioxide 18 L (22-30) mmol/L Assessment and Plan Assessment: Possible acute recurrent seizures Pauses, etiology unclear Daily marijuana use Nicotine dependence Social alcohol use Plan: Continue on current medication regime ,monitoring and symptomatic treatment. Close monitoring for further arrhythmias, pauses. Contrast enhanced MRI ordered.Neurology also recommending prolonged, sleep deprived EEG for better evaluation. Patient reinforced on [facility] on no driving 6 months, no operating dangerous machinery, no unsupervised swimming. Discharge planning in progress pending MRI, neurology and cardiology final DC recommendations and clearance. The impression and plan of care has been dictated as directed. : I performed a history and examination of this patient, discussed the same with the dictator. I agree with the dictator's note ,documented as a scribe. Any additional findings or plans will be noted.
--- NOTE | 2019-08-15 17:12 | MR ---
EXAMINATION TYPE: MR brain w con DATE OF EXAM: 08/15/2019 COMPARISON: Noncontrast MRI performed earlier today HISTORY: 39-year-old male follow-up left cerebellar lesion, Patient had a seizure while sleeping. Hit his head on a dresser. Unsure of length of time that the seizure lasted. Technique: Multiplanar, multisequence images of the brain and brainstem were obtained after administr ation of 15 mL intravenous Gadavist gadolinium contrast. FINDINGS: Round isointense, nonenhancing lesion posteromedial, inferior left cerebellum corresponding to the ar ea of increased T2 signal on the noncontrast images. No mass effect or midline shift. This area measu res 1.0 cm wide and 0.9 cm cranial caudal. Prominent perivascular spaces right greater than left basal ganglia. Dural venous sinuses are patent. No enhancing intracranial lesions are identified. IMPRESSION: A 1 cm round isointense and nonenhancing lesion of the posterior inferior left cerebellum correspondi ng to the T2 hyperintense lesion on the noncontrast study performed earlier today. Some differential considerations include demyelinating disorder, intermediate grade glioma, a small dysplastic ganglioc ytoma, and cerebellar cortical dysplasia/heterotopia.
[2019-08-15] MEDS: levETIRAcetam 500 MG TAB PO SCH ×2 (18:06→19:46)
[2019-08-15] MEDS: SODIUM CHLORIDE 0.9% 1,000 ML IV SCH (18:08)
[2019-08-16] MEDS: levETIRAcetam 500 MG TAB PO SCH (08:40)
[2019-08-16] MEDS: PANTOPRAZOLE 40 MG/10 ML VIAL IV SCH (08:41)
--- NOTE | 2019-08-16 10:54 | P.PN ---
Subjective Progress Note Date: 08/16/19 This is a 39-year-old gentleman who works in the [employer] business, [employer]. He has a past medical history significant for seizures a few years ago, one episode, was never initiated on medication and never followed up with a neurologist. He denies any history of hypertension, no diabetes, no hyperlipidemia, although he does not follow with a primary care doctor. He does smoke up to a pack of cigarettes per day, he does also state that he drinks alcohol every weekend but does not drink through the week at all. He uses marijuana on a daily basis. The patient was brought to the hospital after experiencing what was felt to be a seizure. Apparently the girlfriend stated that it looked like he was having a seizure while laying in bed sleeping, he apparently tried to get up and fell onto the ground hitting his head on the dresser. When I asked the patient about this episode he does not recall any of these symptoms or events. He does state that he's had a seizure in the past but never followed up. Laboratory data on arrival here, white blood cell count 13.2, hemoglobin 16.5, platelet count 223, sodium 139, potassium 5.0, BUN 15, creatinine 0.8 and was negative. Drug screen showed evidence of marijuana. Blood pressure 130/70 with a heart rate in the 70s, patient was having high blood pressures on admission here, but he states he was a quite anxious during those times as well. EKG on presentation here showed a sinus bradycardia. Cardiology consultation was requested because the patient was noted on the monitor on 2 separate occasions to have pauses. Both of these were documented while the patient was sleeping. First positive was approximately 3-1/2 seconds, second pause 2-1/2 seconds. I did ask the patient if he snores a lot or is ever been told to have sleep apnea in the past, he denied this. CAT scan of the brain was performed which did not reveal any evidence of acute intracranial hemorrhage, mass effect, or midline shift. However the blood vessels of the middle cerebral arteries were somewhat hypodense. A CT angiogram of the [place] was performed which did not reveal any large vessel intracranial arterial occlusion or aneurysmal change. At the time of my examination, patient is a lying down in bed, he is quite sleepy and tired. He denies any symptoms at present. He denies any syncopal episodes in the past, no dizziness or li ghtheadedness. Other than his 1 episode of seizure a few years ago patient states he has no medical history of any significance. 08/16/2019 Patient seen and examined this morning, he feels well, denies any further symptoms. He has had no further pauses noted on the monitor. Echocardiogram with Doppler study revealed a normal left ventricular systolic function. Blood pressure 126/80 with a heart rate in the 70s to 80s. MRI of the brain shows a 1 cm round high so intense and nonenhancing lesion of the posterior inferior left cerebellum corresponding to the T2 hyperintense lesion on the noncontrast study performed earlier. Some differential considerations include demyelinating disorder, intermediate grade glioma, a small dysplastic gangliocytoma, and cerebella cortical dysplasia. Neurology is following. Objective - Vital Signs Vital signs: Vital Signs Temp 98.3 F 08/16/19 08:25 Pulse 82 08/16/19 08:25 Resp 18 08/16/19 08:25 BP 126/89 08/16/19 08:25 Pulse Ox 98 08/16/19 08:25 Intake & Output 08/15/19 08/16/19 08/16/19 18:59 06:59 18:59 Intake Total 180 Balance 180 Weight 78.6 kg Intake: Oral 180 Other: # Voids 3 2 - Exam PHYSICAL EXAMINATION: GENERAL: 39-year-old gentleman in no acute distress at the time of my examination HEENT: Head is atraumatic, normocephalic. Pupils equal, round. Sclera anicteric. Conjunctiva are clear. Mucous membranes of the mouth are moist. Neck is supple. There is no elevated jugular venous pressure. No carotid bruit is heard. HEART EXAMINATION: Heart S1, S2 normal. No murmur or gallop heard. CHEST EXAMINATION: Lungs are clear to auscultation and precussion. No chest wall tenderness is noted on palpation or with deep breathing. ABDOMEN: Soft, nontender. Bowel sounds are heard. No organomegaly noted. EXTREMITIES: 2+ peripheral pulses with no evidence of peripheral edema and no calf tenderness noted. NEUROLOGIC patient is awake, alert and oriented 3 . - Labs CBC & Chem 7: 08/15/19 06:33 08/15/19 06:33 Assessment and Plan Plan: Assessment and plan #1 questionable seizures #2 episodes of pauses, could be secondary to sleep apnea #3 nicotine dependence #4 weekend alcohol use #5 marijuana use daily Plan Echocardiogram with Doppler study revealed a normal left ventricular systolic function and patient has had no further episodes of pauses noted. It would be recommended that the patient undergo a sleep study, he may have possible sleep apnea which may be the cause of his pauses. We will follow this patient along with you now on an as-needed basis only, please don't hesitate to call if you have any questions. DNP note has been reviewed, I agree with a documented findings and plan of care. Patient was seen and examined.
[2019-08-16 12:07] VITALS: BP 122/76; PULSE 78; TEMP 98.2
--- NOTE | 2019-08-16 14:40 | P.PN ---
Subjective Progress Note Date: 08/16/19 Patient feels fine. No further seizures. Objective - Vital Signs Vital signs: Vital Signs Temp 98.2 F 08/16/19 11:10 Pulse 78 08/16/19 11:10 Resp 18 08/16/19 11:10 BP 122/76 08/16/19 11:10 Pulse Ox 97 08/16/19 11:10 Intake & Output 08/15/19 08/16/19 08/16/19 18:59 06:59 18:59 Intake Total 180 444 Balance 180 444 Weight 78.6 kg Intake: Oral 180 444 Other: # Voids 3 2 - Exam Nonfocal - Labs CBC & Chem 7: 08/15/19 06:33 08/15/19 06:33 Assessment and Plan Assessment: * 39-year-old male presented to the ER with grand mal seizure while sleeping at night. He had a second seizure in the ER while having computed tomography scan done. Patient also had history of a solitary seizure 4-5 years ago. Exact cause uncertain. Patient has mildly abnormal EEG. Possible seizure disorder. * Abnormal brain MRI. Plan: * EEG was abnormal due to intermittent left temporal theta with occasional sharply contoured waves, may suggest focal cortical neuronal dysfunction with some cortical irritability. Suggest prolonged, sleep deprived EEG for better evaluation of underlying electrographic abnormalities, if any. * MRI of the brain revealed focal increased signal noted to involve the left cerebellum posteriorly measuring 1 cm. While this could reflect an area of demyelination, cannot exclude an underlying lesion. Contrast enhanced MRI is advised for further evaluation. We will check contrast enhanced MRI of the brain. MRI of the brain with contrast revealed 1 cm round isointense and nonenhancing lesion of the posterior inferior left cerebellum, corresponding to the T2 hyperintense lesion on the noncontrast study performed earlier. Some differential considerations include demyelinating disorder, intermediate grade glioma, a small dysplastic gangliocytoma, and cerebellar cortical dysplasia/heterotropia. * Patient recommended to have a follow-up brain MRI with and without contrast in 6-12 months for a follow-up. Suggested patient to follow-up with a neurologist locally as outpatient. * Continue Keppra 500 mg twice a day. * Patient was again informed of [place] state law of no driving, unless seizure free for 6 months, operating dangerous machinery, climbing ladders or unsupervised swimming. * Neurologically clear for discharge on Keppra 500 mg twice a day. * Appreciate cardiology input for arrhythmia.
--- NOTE | 2019-08-16 14:46 | P.DS ---
Providers Date of admission: 08/14/19 13:15 Expected date of discharge: 08/16/19 Attending physician: Brayden Charles Consults: 08/14/19 13:15 Consult Physician Urgent Consulting Provider: Beka Mari Consult Reason/Comments: new onset seizure Do you want consulting provider notified?: Yes 08/15/19 10:53 Consult Physician Routine Consulting Provider: Pebbles Tay Consult Reason/Comments: Pauses Do you want consulting provider notified?: Yes Primary care physician: Stated None Hospital Course: Final Diagnoses: Possible acute recurrent seizures. Abnormal contrast enhanced MRI. Follow-up MRI outpatient in 6 months as recommended per neurology. Pauses, etiology unclear, even monitor outpatient at [facility] Daily marijuana use Nicotine dependence Social alcohol use Hospital course:This is a 39-year-old gentleman admitted with possibly acute recurrent seizure disorder, marijuana use and multiple other medical issues. Earlier this morning telemetry reported patient having pauses2 separate occasions, asymptomatic sleeping, of 3.6 seconds and 2.9 seconds. Seizure precautions, Keppra maintained with no further seizures reported. Evaluated by neurology with recommendations noted and appreciated. Cardiology consulted. Echo reported normal LV function, EF between 55 and 60%. Brain MRI reported focal increased signal noted to involve the left cerebellum posteriorly measuring 1 cm. While this could reflect an area of demyelination, cannot exclude an underlying lesion. Contrast enhanced MRI is advised for further evaluation. EEG reported abnormal due to intermittent left temporal theta with occasional sharply contoured waves,possible focal cortical neuronal dysfunction with some cortical irritability. Maintained on Keppra with no further seizure activity, nor pauses reported. Contrast enhanced MRI reporting 1 cm round isointense, nonenhancing lesion of the posterior inferior left cerebellum corresponding to the T2 hyperintense lesion on the prior noncontrast study. Some differential considerations include demyelinating disorder, intermediate grade glioma, small dysplastic gangliocytoma and cerebellar cortical dysplasia/heterotopia. Possible scar tissue with follow-up MRI in 6 months as recommended per neurology. Neurology also recommending prolonged, sleep deprived EEG for better evaluation. Cleared by Cardiology for discharge, recommending an event monitor at [facility] and possible sleep study-to be arranged by PCP.Patient reinforced on [facility] on no driving 6 months, no operating dangerous machinery, no unsupervised swimming. Patient will be discharged home today in stable condition with guarded prognosis pending final [facility] recommendations and clearance from neurology. The impression and plan of care has been dictated as directed. : I performed a history and examination of this patient, discussed the same with the dictator. I agree with the dictator's note ,documented as a scribe. Any additional findings or plans will be noted. Patient Condition at Discharge: Stable Plan - Discharge Summary Discharge Rx Participant: Yes New Discharge Prescriptions: New levETIRAcetam [Keppra] 500 mg PO Q12HR #60 tab Pantoprazole Sodium [Protonix] 40 mg PO DAILY #30 tablet. Discharge Medication List Pantoprazole Sodium [Protonix] 40 mg PO DAILY #30 tablet. 08/16/19 [Rx] levETIRAcetam [Keppra] 500 mg PO Q12HR #60 tab 08/16/19 [Rx] Follow up Appointment(s)/Referral(s): Yeimy Rosenberg MD [STAFF PHYSICIAN] - 2 Weeks Brayden Charles MD [STAFF PHYSICIAN] - 3 Days [facility] [[facility] - As Needed Patient Instructions/Handouts: How to Stop Smoking (DC) Activity/Diet/Wound Care/Special Instructions: Event monitor at discharge. Follow-up BRain MRI in 6mths. Sleep study to be arranged by PCP.
== END 2019-08-16 15:40 | disposition home or self-care (01) | DRG 101 ==
LOC: EC 10:40 → 3SCARD 13:15
PROVIDERS: ADMIT Family Medicine; ATTEND Family Medicine
DX: G40.909 Epilepsy, unspecified, not intractable, without status epilepticus (principal); F17.210 Nicotine dependence, cigarettes, uncomplicated; R00.1 Bradycardia, unspecified; G47.30 Sleep apnea, unspecified; R94.01 Abnormal electroencephalogram [EEG]; R94.02 Abnormal brain scan; W06.XXXA Fall from bed, initial encounter
CPT/HCPCS: 36415; 70450; 70496; 70551; 70552; 80048; 80053; 80306; 81001; 84443; 85025; 93005; 93306; 95819; 96360; 96361; 96372; 96374; 99285

== ENCOUNTER → 2020-03-17 | Outpatient (CLI) | payer OTHER | END | disposition home or self-care (01) | LOC: LABWHC1 09:26 | PROVIDERS: ATTEND Psychiatry & Neurology Neurology | DX: G40.309 Generalized idiopathic epilepsy and epileptic syndromes, not intractable, without status epilepticus (principal) | CPT/HCPCS: 36415; 80177 ==

== ENCOUNTER 2020-05-29 14:30 | Emergency (ER) | payer OTHER ==
[2020-05-29 14:40] VITALS: BP 130/81; PULSE 108; RESP 18; TEMP 98.5
[2020-05-29] MEDS ORDERED: predniSONE 50 MG TAB PO STA (14:55)
[2020-05-29] MEDS ORDERED: KETOROLAC 15 MG/ML 1 ML VIAL IM STA (14:55)
--- NOTE | 2020-05-29 15:17 | ED ---
General Adult HPI - General Chief complaint: Back Pain/Injury Stated complaint: Back Pain Time Seen by Provider: 05/29/20 14:42 Source: patient Mode of arrival: ambulatory Limitations: no limitations - History of Present Illness Initial comments: 40-year-old male with a past medical history of seizure disorder presents to the emergency room for a chief complaint of back pain. Patient states he has had chronic back pain since an accident over 10 years ago. Patient called his doctor today about his back pain and he was recommended he come to the emergency room. Patient states this is the same as his normal back pain. States it does radiate down the back of his right leg a bit. Denies any weakness of the legs. Denies any bladder or bowel changes. Denies any symptoms of saddle anesthesia. No fevers. Patient states his doctor told him to get x-rays that he does not want them as he knows it will not show anything.Patient has no other complaints at this time including shortness of breath, chest pain, abdominal pain, nausea or vomiting, headache, or visual changes. - Related Data Previous Rx's Medication Instructions Recorded Pantoprazole Sodium [Protonix] 40 mg PO DAILY #30 tablet. 08/16/19 levETIRAcetam [Keppra] 500 mg PO Q12HR #60 tab 08/16/19 predniSONE 50 mg PO DAILY #4 tablet 05/29/20 Allergies Allergy/AdvReac Type Severity Reaction Status Date / Time cyclobenzaprine Allergy Rash/Hives Verified 05/29/20 14:37 [From Flexeril] tramadol AdvReac Nausea & Verified 05/29/20 14:37 Vomiting Review of Systems ROS Statement: Those systems with pertinent positive or pertinent negative responses have been documented in the HPI. ROS Other: All systems not noted in ROS Statement are negative. Past Medical History Past Medical History: Seizure Disorder History of Any Multi-Drug Resistant Organisms: None Reported Past Surgical History: No Surgical Hx Reported Additional Past Surgical History / Comment(s): left thumb surgery Past Psychological History: No Psychological Hx Reported Smoking Status: Current every day smoker Past Alcohol Use History: Daily, Heavy Past Drug Use History: Marijuana General Exam Limitations: no limitations General appearance: alert Head exam: Present: atraumatic, normocephalic, normal inspection Eye exam: Present: normal appearance, PERRL, EOMI. Absent: scleral icterus ENT exam: Present: normal exam, mucous membranes moist Neck exam: Present: normal inspection, full ROM. Absent: tenderness Respiratory exam: Present: normal lung sounds bilaterally. Absent: respiratory distress Cardiovascular Exam: Present: regular rate, normal rhythm, normal heart sounds GI/Abdominal exam: Present: soft, normal bowel sounds. Absent: distended, tenderness, guarding, rebound, rigid Extremities exam: Present: normal capillary refill (Capillary refill less than 2 seconds, DP pulses 2+ bilaterally) Back exam: Present: paraspinal tenderness (Right-sided lumbar paraspinal tenderness), other (Ambulatory). Absent: CVA tenderness (R), CVA tenderness (L), vertebral tenderness Neurological exam: Present: alert Course Vital Signs 05/29/20 14:37 Temperature 98.5 F Pulse Rate 108 H Respiratory 18 Rate Blood Pressure 130/81 O2 Sat by Pulse 98 Oximetry Medical Decision Making - Medical Decision Making Patient presents for chronic back pain. Vitals are stable. Neurovascular status intact in bilateral lower extremities. No red flag symptoms. At this time patient will be discharged home to follow up with orthopedics. Referral given. He will return here for any worsening symptoms. I discussed this case with attending Dr. Valladares who agrees with this assessment and treatment plan. Disposition Clinical Impression: Chronic back pain, Lumbar radiculopathy Disposition: HOME SELF-CARE Condition: Good Instructions (If sedation given, give patient instructions): Acute Low Back Pain (ED) Additional Instructions: Please steroid as directed. Take neck dose tomorrow as he were given a dose in the emergency room today. Follow up with orthopedics for possible MRI. Return to the emergency room for any worsening symptoms. These could include severely worsening pain, weakness of the lower extremities, bladder or bowel changes, fevers, or numbness or tingling of the groin or buttock. Prescriptions: predniSONE 50 mg PO DAILY #4 tablet Is patient prescribed a controlled substance at d/c from ED?: No Referrals: Brayden Charles MD [Primary Care Provider] - 1-2 days Carmencita Rios DO [Doctor of Osteopathic Medicine] - 1-2 days Time of Disposition: 15:15
== END 2020-05-29 15:23 | disposition home or self-care (01) ==
LOC: EC 14:30
DX: M54.16 Radiculopathy, lumbar region (principal); G89.29 Other chronic pain; M54.9 Dorsalgia, unspecified; F17.200 Nicotine dependence, unspecified, uncomplicated; Z88.8 Allergy status to other drugs, medicaments and biological substances; Z88.6 Allergy status to analgesic agent
CPT/HCPCS: 99283; 96372; J1885; J7512

== ENCOUNTER → 2020-06-18 | Outpatient (CLI) | payer OTHER ==
--- NOTE | 2020-06-18 16:35 | XR ---
EXAMINATION TYPE: XR lumbosacral spine min 4V DATE OF EXAM: 06/18/2020 COMPARISON: None HISTORY: Lumbosacral spine pain TECHNIQUE: Five-view lumbar spine FINDINGS: There 5 lumbar-type vertebral bodies. Pedicles are intact. There is narrowing of the L5-S1 disc height. There is a residual disc at S1-S2. No spondylolytic defects are evident. Facets appear normal. Vertebral body heights are preserved. Rem aining disc heights are preserved. Alignment is normal. No spondylolisthesis is evident. IMPRESSION: 1. Degenerative disc changes L5-S1.
== END | disposition home or self-care (01) ==
LOC: RADXRMAIN 12:30
PROVIDERS: ATTEND Family Medicine
DX: M54.16 Radiculopathy, lumbar region (principal); M51.37 Other intervertebral disc degeneration, lumbosacral region
CPT/HCPCS: 72110

== ENCOUNTER → 2020-07-22 | Outpatient (CLI) | payer OTHER | END | disposition home or self-care (01) | LOC: LABWHC1 10:13 | PROVIDERS: ATTEND Psychiatry & Neurology Neurology | DX: G40.309 Generalized idiopathic epilepsy and epileptic syndromes, not intractable, without status epilepticus (principal) | CPT/HCPCS: 36415; 80177 ==

== ENCOUNTER → 2022-07-23 | Outpatient (CLI) | payer OTHER | END | disposition home or self-care (01) | LOC: LABWHC1 09:55 | PROVIDERS: ATTEND Psychiatry & Neurology Neurology | DX: G40.309 Generalized idiopathic epilepsy and epileptic syndromes, not intractable, without status epilepticus (principal) | CPT/HCPCS: 36415; 80177 ==

== ENCOUNTER → 2023-02-19 | Outpatient (CLI) | payer OTHER ==
--- NOTE | 2023-02-19 21:26 | MR ---
EXAMINATION TYPE: MR brain wo/w con DATE OF EXAM: 02/19/2023 11:57 AM CLINICAL INDICATION:Male, 42 years old with history of G40.309 SEIZURE DISORD R90.89 AB BR MRI G93.9; PHH, Seizures, abnormal MRI 08-15-19. COMPARISON: 08/15/2019 MRI TECHNIQUE: Multi planar, multi sequence imaging was performed through the brain including: T1, T2, In version recovery, susceptibility weighted imaging and gradient echo imaging and Diffusion weighted im aging. The patient was then given intravenous contrast and multi planar, T1 fat-saturation images wer e obtained. IV Contrast: 8 cc Gadobutrol FINDINGS: Stable appearance of the 9 millimeter lesion in the left inferior posterior medial cerebellum which i s higher T2 signal peripherally with some low T2 signal centrally. No evidence of restricted diffusio n. There remains no evidence of postcontrast enhancement. The flores-white junctions, ventricular system, basal cisterns appear unremarkable. Diffusion-weighted imaging shows no evidence of restricted diffusion to suggest acute/subacute infarct. Intracranial ar terial flow voids are maintained. Midline structures show no abnormality. Stable scattered foci of hi gh T2 signal intensity are seen within the periventricular white matter. The susceptibility weighted images do not reveal any evidence for micro-hemorrhage. After administration of gadolinium, no abnorm al enhancement is seen. The bone marrow signal is within normal limits. Paranasal sinuses and mastoid air cells: No significant paranasal sinus disease. Visualized orbits: Orbital contents are intact. IMPRESSION: 1. Stable 1 cm round isointense nonenhancing lesion of the posterior medial inferior left cerebellum back to 08/15/2019. There is some susceptibility weighted blooming artifacts which could represent a vascular malformation. Other differentials include Intermediate grade glioma, a small dysplastic gang liocytoma, and cerebellar cortical dysplasia/heterotopia. 2. Scattered nonspecific white matter changes. Findings not significantly changed from 2019.
== END | disposition home or self-care (01) ==
LOC: RADMRIMAIN 10:59
PROVIDERS: ATTEND Psychiatry & Neurology Neurology
DX: G40.309 Generalized idiopathic epilepsy and epileptic syndromes, not intractable, without status epilepticus (principal); R90.89 Other abnormal findings on diagnostic imaging of central nervous system; R90.82 White matter disease, unspecified; G93.9 Disorder of brain, unspecified
CPT/HCPCS: 70553; A9585